=== PATIENT | male | born 1975 | race Caucasian/White ===

== ENCOUNTER 2025-03-26 00:07 | Day surgery (SDC) | payer BC, SELFPAY ==
[2025-03-09 14:13] VITALS: BMI 26.4
--- OUTSIDE RECORDS SUMMARY | 2025-03-26 00:10 | XMS_ITS | Clinical Summary ---
Author Organization [place] [id number] Address [address] [place] [address] Care Team Providers Care Rib Trim Separator Name Role Phone Yelena Gaines Primary Care Provider [phone] Allergies No known active allergies Medications No known medications Active Problems Problem Noted Date Diagnosed Date BMI 25.0-25.9,adult 01/11/2019 Assessment & Plan (01/12/2019 4:32 AM CDT): Weight/BMI is in healthy range. Continue healthy lifestyle to maintain. Mixed hyperlipidemia 01/07/2019 Assessment & Plan (01/12/2019 4:32 AM CDT): Encouraged patient to continue low fat/low chol diet. Continue exercise. Increase good fats in the diet. Monitor labs as needed. His current 10 year CV risk is less than 2% reviewed this with patient and also reviewed this calculation does not take into consideration the LDL. Discussed starting a statin versus continue to monitor with diet and exercise. At this point he prefers to not start the medication and to work on behavior changes. Will continue monitor his labs. Vitamin D deficiency 01/07/2019 Assessment & Plan (01/12/2019 4:30 AM CDT): Supplement otc Immunizations Immunization Administration Dates Next Due Tdap 12/05/2018 Family History Medical History Relation Name Comments Hypertension Father Ovarian cancer Mother Relation Name Status Comments Father Mother Social History Tobacco Use Types Packs/Day Years Used Date Smoking Tobacco: Never Smokeless Tobacco: Never Tobacco Cessation:Counseling Given: Yes Alcohol Use Standard Drinks/Week Comments Yes 0 (1 standard drink = 0.6 oz pur e alcohol) PHQ-2 Answer Date Recorded PHQ-2 Score 0 12/17/2018 Personal Safety Answer Date Recorded Getting School Help Needed Not on file 07/10 Sex and Gender Information Value Date Recorded Sex Assigned at Not on file Legal Sex Male 9:17 AM CDT Gender Identity Not on file Sexual Orientation Not on file 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 Not on file Not on file Not on file Last Filed Vital Signs Vital Sign Reading Time Taken Comments Blood Pressure 112/72 01/11/2019 3:27 PM CDT Pulse 61 01/11/2019 3:27 PM CDT Temperature 36.5 C (97.7 F) 01/11/2019 3:27 PM CDT Respiratory Rate - - Oxygen Saturation 99% 01/11/2019 3:27 PM CDT Inhaled Oxygen Concentration - - Weight 83.2 kg (183 lb 8 oz) 01/11/2019 3:27 PM CDT Height 180.3 cm (5' 11) 01/11/2019 3:27 PM CDT Body Mass Index 25.59 01/11/2019 3:27 PM CDT Plan of Treatment Not on file Insurance [employer] Care Teams Rib Trim Separator Relationship Specialty Start Date End Date Yelena Gaines PA [address] [place] [address] PCP - General Internal Medicine 11/14/18
[2025-03-26 06:45] VITALS: BP 123/81; PULSE 77; RESP 16; TEMP 36; O2SAT 98
[2025-03-26] MEDS: LACTATED RINGERS 1,000 ML 150 ML IV CONT (06:52)
--- NOTE | 2025-03-26 07:34 | P.PNAN_ITS ---
Anes - Initial Pre Proc Eval Procedure: Operation Date: 03/26/25 08:00 Proposed Procedures p Screening Colonoscopy - Krzysztof eKlley DO Date/Time: 03/26/25 07:34 Surgeon: Krzysztof Kelley DO Pre Op Diagnosis: Neoplasm screening Patient Data Age: 50 Gender: M Height: 1.83 m Weight: 91.4 kg Last Vital Signs Temp 36.0 C L 03/26/25 06:45 Pulse 77 03/26/25 06:45 Resp 16 03/26/25 06:45 BP 123/81 03/26/25 06:45 Pulse Ox 98 03/26/25 06:45 O2 Del Method Room Air 03/26/25 06:45 Allergies Allergy/AdvReac Type Severity Reaction Status Date / Time No Known Allergies Allergy N/A Uncoded 11/03/24 13:52 Home Medications ?Medication ?Instructions ?Recorded ?Confirmed ?Type omega-3 360 [id number] 1 cap PO DAILY 11/03/24 History oil-vitamin D3 12.5 mcg capsule Patient hx anesthesia problems: none Family hx anesthesia problems: none Results Review: All pre-operative results and documents have been reviewed as part of the pre- operative evaluation. [facility] Past Medical History Medical History FH: hyperlipidemia Open wound of left middle finger with damage to nail Injury of nail bed of finger of left hand Family History Family History Mother Ovarian cancer Social History Social History Social History: Smoking status: Never smoker Second hand tobacco smoke exposure: No Alcohol intake: current Drinks per week: 2 Alcohol use details: Occasionally Substance use type: does not use Lack of Transportation: No Lack of Food: Never True Current Housing: I Have Housing Concerned About Future Housing: No Difficulty Paying Gas/Electric Bills: No Difficulty Paying for Meds: No Currently Unemployed: No Education: Don't Know Difficulty w/ Childcare or Family Care: No Living arrangements: with family Additional living arrangements comments: with sp Occupation/Education: occupation 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 Gender identity (if verbalized by the patient): Male Sexual Orientation (if Verbalized by the Patient): Straight or Heterosexual Anes - Eval Final PreProcedure Day of Procedure 03/26/25 07:34 Patient weight: overweight Heart: regular rate and rhythm Lungs: clear to auscultation Airway: Mallampati scale class II Neurological: alert and oriented Last oral intake: >/= 8 hours ASA classification: II Emergent: no Anesthetic plan: proceed Anesthesia type and monitoring: general GIVS and standard monitoring Results Review: All pre-operative results and documents have been reviewed as part of the pre- operative evaluation. Informed Consent: The patient's anesthetic plan and its attendant risks and benefits were discussed with the patient/family/POA. Questions were solicited and answers provided to the satisfaction of the patient/family/POA.
--- NOTE | 2025-03-26 07:54 | P.HP_ITS ---
H&P: HPI History of Present Illness Date/Time: 03/26/25 07:54 Chief Complaint: screening for colorectal cancer Narrative: this is a 50-year-old man who presents for colonoscopy. He has never had a colonoscopy before. He denies any hematochezia or melena. He denies any family history of colon cancer in first-degree family members, but did have a grandfather who had colon cancer. Review of Systems Review of Systems: All systems reviewed & are unremarkable except as noted in HPI and below Constitutional: Constitutional: Denies chills, Denies fever(s), Denies headache(s) and Denies weight loss Eyes: Eyes: Denies change in vision ENT: Denies dizziness, Denies headache(s), Denies neck mass and Denies throat swelling Cardiovascular: Cardiovascular: Denies chest pain, Denies lightheadedness and Denies dyspnea Respiratory: Respiratory: Denies cough, Denies dyspnea and Denies wheezing Gastrointestinal: Gastrointestinal: Denies abdominal pain, Denies change in bowel habits, Denies nausea and Denies vomiting Genitourinary: Genitourinary: Denies hematuria and Denies dysuria Musculoskeletal: Musculoskeletal: Reports as per HPI Integumentary/Breasts: Skin/Breast: Reports as per HPI Neurologic: Denies dizziness and Denies headache(s) Allergic/Immunologic: Allergic/Immunologic: Denies throat swelling and Denies wheezing [facility] Past Medical History Medical History FH: hyperlipidemia Open wound of left middle finger with damage to nail Injury of nail bed of finger of left hand Family History Family History Mother Ovarian cancer Social History Social History Social History: Smoking status: Never smoker Second hand tobacco smoke exposure: No Alcohol intake: current Drinks per week: 2 Alcohol use details: Occasionally Substance use type: does not use Lack of Transportation: No Lack of Food: Never True Current Housing: I Have Housing Concerned About Future Housing: No Difficulty Paying Gas/Electric Bills: No Difficulty Paying for Meds: No Currently Unemployed: No Education: Don't Know Difficulty w/ Childcare or Family Care: No Living arrangements: with family Additional living arrangements comments: with sp Occupation/Education: occupation 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 Gender identity (if verbalized by the patient): Male Sexual Orientation (if Verbalized by the Patient): Straight or Heterosexual Meds Home Medications and Allergies Home Medications ?Medication ?Instructions ?Recorded ?Confirmed ?Type omega-3 360 kv-[id number]-fish 1 cap PO DAILY 11/03/24 History oil-vitamin D3 12.5 mcg capsule Allergies Allergy/AdvReac Type Severity Reaction Status Date / Time No Known Allergies Allergy N/A Uncoded 11/03/24 13:52 Vital Signs Vital Signs - 24 hr 03/26/25 06:45 Temperature 96.8 F L Pulse Rate 77 Respiratory Rate 16 Blood Pressure 123/81 Pulse Oximetry 98 Oxygen Delivery Room Air Exam Const: General: no acute distress and alert Orientation/consciousness: patient oriented x3 HENMT: Head: normocephalic and atraumatic Ears: hearing grossly normal bilaterally Face/Nose/Sinus: Normal nares present Mouth: Yes Normal oral and palatal mucosa present Eyes: Periorbital: periorbital findings normal Sclera: sclerae normal EOM: EOMs intact bilaterally Neck: Neck: normal visual inspection, no lymphadenopathy and trachea midline Chest: Chest palpation & inspection: normal inspection of the chest Resp: Effort & Inspection: normal respiratory effort Auscultation: clear to auscultation bilaterally Cardio: Jugular venous distension: no JVD Rate: regular rate Rhythm: regular rhythm Heart sounds: S1 normal heart sound present and S2 normal heart sound present Peripheral pulses: Peripheral pulses 2+ throughout GI: Inspection: normal to inspection GI Palp: Yes Soft to palpation, No Tenderness to palpation present (GI), No Guarding due to palpation present (GI) and No Rebound tenderness present Percussion: Yes normal to percussion Auscultation: normal bowel sounds : General: Yes no CVA tenderness Back/Spine/Pelvis: Back: no CVA tenderness Neuro: General: patient oriented x3, no focal motor deficits and CN's II-XI intact bilaterally Cognition (Neuro): normal cognition Speech: normal speech Motor exam (neuro): 5/5 motor strength present throughout Extrem: General: capillary refill normal and no clubbing, cyanosis or edema Assessment and Plan Assessment and plan (1) Screening for colorectal cancer: Code(s): Z12.11 - Encounter for screening for malignant neoplasm of colon; Z12.12 - Encounter for screening for malignant neoplasm of rectum Status: Acute Assessment and Plan: I have recommended colonoscopy. I have discussed the procedure, risks, benefits, and alternatives. Questions were answered. Patient is agreeable to proceed.
--- NOTE | 2025-03-26 08:17 | S_PTH ---
PATIENT: Nicolas Colin LOC: [facility] U#:[id number] AGE/SX: 50/M ROOM: RE03/26/[address]: Krzysztof Kelley DO : 1975 BED: DIS: 03/26/2025 SPEC #: [id number] RECD: 03/26/25 10:50 STATUS: KEENAN REQ #: [id number] THAIS: 03/26/25 08:[address]: Krzysztof Kelley DEPT: [facility] Surgical RECD BY: Raine Rivera ENTERED: 03/26/25 10:50 SP TYPE: Surgical OTHR DR: Pascual Bennett MD Tissues: A - Colon Polypectomy Procedures: Hematoxylin and Eosin Stain Gross and Microscopic Level 4
[2025-03-26 08:19] VITALS: BP 103/66; PULSE 71; RESP 17; O2SAT 98
[2025-03-26 08:29] VITALS: BP 104/64; PULSE 71; RESP 16; O2SAT 98
[2025-03-26 08:39] VITALS: BP 119/84; PULSE 63; RESP 18; O2SAT 98
== END 2025-03-26 08:45 | disposition home or self-care (01) ==
PROVIDERS: PCP Family Medicine; Visit Provider Surgery
PROC: 0DJD8ZZ Inspection of Lower Intestinal Tract, Via Natural or Artificial Opening Endoscopic (ICD-10-PCS; CPT 45378; principal; 2025-03-26 08:00)
DX: Z12.11 Encounter for screening for malignant neoplasm of colon (principal); D12.3 Benign neoplasm of transverse colon
CPT/HCPCS: 45380; 88305; J2003; J2704; J7120